=== PATIENT | male | born 1960 | race American Indian/Alaskan Native ===

== ENCOUNTER 2018-11-02 08:37 | Emergency (ER) | payer MEDICARE ==
[2018-11-02] MEDS ORDERED: Sodium Chloride 0.9% 1,000 ML IV STA (09:59)
[2018-11-02 10:34] LABS: BASO # 0.1 K/uL (0.0-0.2); BASO % 0.6 % (0.0-2.0); EOS # 0.2 K/uL (0.0-0.7); EOS % 1.6 % (0.0-4.0); HEMOGLOBIN 15.8 g/dL (12.0-18.0); LYMPH # 0.6 K/uL (1.0-4.3); LYMPH % 6.3 % (20.0-40.0); MEAN CORPUSCULAR HEMOGLOBIN 25.1 pg (27.0-31.0); MEAN CORPUSCULAR HGB CONC 33.1 g/dL (33.0-37.0); MEAN PLATELET VOLUME 8.7 fl (7.2-11.7); MONO # 0.5 K/uL (0.0-0.8); MONO % 5.5 % (0.0-10.0); NEUT # 8.6 K/uL (1.8-7.0); PLATELET COUNT 310 K/uL (130-400); RBC 6.29 Mil/uL (4.40-5.90); RED CELL DISTRIBUTION WIDTH 15.9 % (11.5-14.5)
[2018-11-02 10:42] LABS: ALB/GLOB RATIO 1.1 (1.0-2.1); ALBUMIN 4.3 g/dL (3.5-5.0); ALT/SGPT 57 U/L (21-72); AST/SGOT 41 U/L (17-59); BLOOD UREA NITROGEN 17 mg/dl (9-20); CALCIUM 9.2 mg/dL (8.4-10.2); GFR NON-AFRICAN AMERICAN > 60; LIPASE 34 U/L (23-300)
--- NOTE | 2018-11-02 10:57 | ED PDOC ---
HPI: Abdomen Time Seen by Provider: 11/02/18 09:22 Chief Complaint (Nursing): GI Problem History Per: Patient History/Exam Limitations: no limitations Onset/Duration Of Symptoms: Days (2) Outside of [place] travel?: No Severity: Moderate Pain Scale Rating Of: 4 Location Of Pain/Discomfort: LUQ (2 weeks) Quality Of Discomfort: Dull Associated Symptoms: Vomiting, Diarrhea Last Bowel Movement: Today Past Medical History Reviewed: Historical Data, Nursing Documentation, Vital Signs Vital Signs: Last Vital Signs Temp 98.4 F 11/02/18 09:00 Pulse 97 H 11/02/18 10:36 Resp 19 11/02/18 10:36 BP 183/111 H 11/02/18 10:36 Pulse Ox 100 11/02/18 10:36 - Medical History PMH: Back Problems, HTN, Hypercholesterolemia Denies: CAD, CVA - Surgical History Surgical History: Appendectomy - Family History Family History: States: No Known Family Hx - Home Medications Home Medications: Ambulatory Orders Medication Instructions Recorded Famotidine [Pepcid] 20 mg PO DAILY #14 tab 11/02/18 Losartan [Cozaar] 50 mg PO DAILY #30 tab 11/02/18 Naproxen 500 mg PO BID #30 tab 11/02/18 - Allergies Allergies/Adverse Reactions: Allergies Allergy/AdvReac Type Severity Reaction Status Date / Time shrimp Allergy SWELLING Verified 11/02/18 08:49 Review of Systems ROS Statement: Except As Marked, All Systems Reviewed And Found Negative Physical Exam - Reviewed Nursing Documentation Reviewed: Yes Vital Signs Reviewed: Yes - Physical Exam Appears: Positive for: Uncomfortable Head Exam: Positive for: ATRAUMATIC, NORMAL INSPECTION Skin: Positive for: Normal Color, Warm, Dry Eye Exam: Positive for: EOMI Cardiovascular/Chest: Positive for: Regular Rate, Rhythm Respiratory: Positive for: Normal Breath Sounds Gastrointestinal/Abdominal: Positive for: Soft, Tenderness (LUQ pain). Negative for: Organomegaly, Mass, Distended Extremity: Positive for: Normal ROM Neurologic/Psych: Positive for: Alert, Oriented - Laboratory Results Result Diagrams: 11/02/18 10:15 11/02/18 10:15 Lab Results: Total Bilirubin 0.6 mg/dl (0.2-1.3) 11/02/18 10:15 AST 41 U/L (17-59) 11/02/18 10:15 ALT 57 U/L (21-72) 11/02/18 10:15 Alkaline Phosphatase 106 U/L (38-126) 11/02/18 10:15 Total Protein 8.3 G/DL (6.3-8.2) H 11/02/18 10:15 Albumin 4.3 g/dL (3.5-5.0) 11/02/18 10:15 Globulin 3.9 gm/dL (2.2-3.9) 11/02/18 10:15 Albumin/Globulin Ratio 1.1 (1.0-2.1) 11/02/18 10:15 Lipase 34 U/L (23-300) 11/02/18 10:15 - ECG O2 Sat by Pulse Oximetry: 100 - Progress Re-evaluation Time: 14:47 Condition: Re-examined, Improved Medical Decision Making Medical Decision Making: Impression Abdominal pain vomiting diarrhea Diff include Acute pancreaitis, biliary dz, gastroenteritis Time: 1206 FINDINGS: LOWER THORAX: Unremarkable. LIVER: Unremarkable. No gross lesion or ductal dilatation. GALLBLADDER AND BILE DUCTS: Unremarkable. PANCREAS: Unremarkable. No gross lesion or ductal dilatation. SPLEEN: Unremarkable. ADRENALS: Unremarkable. No mass. KIDNEYS AND URETERS: Unremarkable. No hydronephrosis. No solid mass. VASCULATURE: Unremarkable. No aortic aneurysm. No aortic atherosclerotic calcification or mural plaque present. BOWEL: Small hiatal hernia. Colonic diverticulosis. No obstruction. No gross mural thickening. APPENDIX: No findings to suggest acute appendicitis. PERITONEUM: Small left fat containing inguinal hernia. No free fluid. No free air. LYMPH NODES: Unremarkable. No enlarged lymph nodes. BLADDER: Unremarkable. REPRODUCTIVE: Unremarkable. BONES: Spinal degenerative changes. No acute fracture. OTHER FINDINGS: None. IMPRESSION: No acute abdominal pelvic pathology. Disposition - Clinical Impression Clinical Impression: Abdominal pain, Gastroenteritis, Hypertension, Back pain - Patient ED Disposition Is Patient to be Admitted: No Doctor Will See Patient In The: Office Counseled Patient/Family Regarding: Studies Performed, Diagnosis - Disposition Referrals: [facility] [Outside] Disposition: Routine/Home Disposition Time: 14:49 Condition: GOOD Additional Instructions: NICKOLAS HOWARD, thank you for letting us take care of you today. Your provider was Elsi Hood MD and you were treated for VOMITING,DIARRHEA. The emergency medical care you received today was directed at your acute symptoms. If you were prescribed any medication, please fill it and take as directed. It may take several days for your symptoms to resolve. Return to the Emergency Department if your symptoms worsen, do not improve, or if you have any other problems. Please contact your doctor or call one of the physicians/clinics you have been referred to that are listed on the Patient Visit Information form that is included in your discharge packet. Bring any paperwork you were given at discharge with you along with any medications you are taking to your follow up visit. Our treatment cannot replace ongoing medical care by a primary care provider outside of the emergency department. Thank you for allowing the [facility] team to be part of your care today. If you had an X-Ray or CT scan: A Radiologist will review the ED reading if any change in treatment is needed we will contact you. If you had a blood, urine, or wound culture: It will take several days for the results, if any change in treatment is needed we will contact you. If you had an STI test: It will take 48 hours for the results. Please call after 1 week if you have not heard back. Prescriptions: Famotidine [Pepcid] 20 mg PO DAILY #14 tab Losartan [Cozaar] 50 mg PO DAILY #30 tab Naproxen 500 mg PO BID #30 tab Instructions: Stomach Ache and Stomach Upset, High Blood Pressure (DC) Forms: [employer] (Uzbek)
[2018-11-02] MEDS ORDERED: Iohexol 300 100 ML IJ ONE (11:48)
[2018-11-02] MEDS ORDERED: Sodium Chloride 0.9% 50 ML IV ONE (11:48)
--- NOTE | 2018-11-02 12:20 | CT ---
Date of service: 11/02/2018 PROCEDURE: CT Abdomen and Pelvis with contrast HISTORY: abdominal pain COMPARISON: None. TECHNIQUE: Contrast dose: 95 mL Omnipaque 300 Radiation dose: Total exam DLP = 897.63 mGy-cm. This CT exam was performed using one or more of the following dose reduction techniques: Automated exposure control, adjustment of the mA and/or kV according to patient size, and/or use of iterative reconstruction technique. FINDINGS: LOWER THORAX: Unremarkable. LIVER: Unremarkable. No gross lesion or ductal dilatation. GALLBLADDER AND BILE DUCTS: Unremarkable. PANCREAS: Unremarkable. No gross lesion or ductal dilatation. SPLEEN: Unremarkable. ADRENALS: Unremarkable. No mass. KIDNEYS AND URETERS: Unremarkable. No hydronephrosis. No solid mass. VASCULATURE: Unremarkable. No aortic aneurysm. No aortic atherosclerotic calcification or mural plaque present. BOWEL: Small hiatal hernia. Colonic diverticulosis. No obstruction. No gross mural thickening. APPENDIX: No findings to suggest acute appendicitis. PERITONEUM: Small left fat containing inguinal hernia. No free fluid. No free air. LYMPH NODES: Unremarkable. No enlarged lymph nodes. BLADDER: Unremarkable. REPRODUCTIVE: Unremarkable. BONES: Spinal degenerative changes. No acute fracture. OTHER FINDINGS: None. IMPRESSION: No acute abdominal pelvic pathology.
[2018-11-02 13:11] LABS: BASOPHIL 1 % (0-2); EOSINOPHIL 1 % (0-7); LYMPHOCYTE 7 % (20-50); MONOCYTE 5 % (0-10); NEUTROPHIL 86 % (42-75); PLATELET ESTIMATE NORMAL (NORMAL); TOTAL CELLS COUNTED 100
[2018-11-02 13:12] LABS: ANISOCYTOSIS SLIGHT; LARGE PLATELETS PRESENT; TEARDROP CELLS SLIGHT
[2018-11-02 14:19] VITALS: PULSE 80; RESP 18
[2018-11-02 15:11] VITALS: BP 144/89; TEMP 98.1; O2SAT 97
--- NOTE | 2018-11-02 16:52 | CARD ---
APPROVED REPORT Date of service: 11/02/2018 EKG Measurement Heart [id number] <Conclusion> Normal sinus rhythm Possible Left atrial enlargement Left ventricular hypertrophy Inferior infarct, age undetermined T wave abnormality, consider lateral ischemia Abnormal ECG
== END 2018-11-02 15:09 | disposition home or self-care (01) ==
LOC: H.ER 08:37
DX: R10.9 Unspecified abdominal pain (principal); R11.10 Vomiting, unspecified; R19.7 Diarrhea, unspecified; I10 Essential (primary) hypertension; K52.9 Noninfective gastroenteritis and colitis, unspecified; M54.9 Dorsalgia, unspecified
CPT/HCPCS: 74177; 80053; 83690; 85025; 93005; 96374; 96375; 99285; J1885; J2405; J7030; Q9967